=== PATIENT | female | born 1955 | race Caucasian/White ===

== ENCOUNTER 2020-03-01 15:19 | Observation (INO) | payer MEDICARE, MEDICAID, SELFPAY ==
[2020-03-01 15:20] VITALS: PULSE 101; RESP 12; TEMP 36.6; O2SAT 100
--- NOTE | 2020-03-01 15:20 | ECG_ITS ---
Measurements Intervals [place] Rate: 99 P: 26 [place]: 128 QRS: 22 QRSD: 92 T: 2 QT: 341 QTc: 438 Interpretive Statements SINUS RHYTHM NONSPECIFIC ST & T-WAVE ABNORMALITY- DIFFUSE LEADS BASELINE ARTIFACT- I, II, III, AVR, AVL, AVF, V1-V6 BORDERLINE ECG Electronically Signed On 03-01-2020 16:12:59 CDT by Fitz Pollock D.O.
[2020-03-01 15:43] LABS: Basophils Percent Auto 0.3 % (0.2-1.2); Eosinophils Absolute Auto 0.3 K/mm3 (0-0.3); Eosinophils Percent Auto 2.8 % (0-4.4); Hematocrit 34.7 % (37.0-47.0); Hemoglobin 11.7 g/dL (12.0-15.0); Immature Granulocyte Absolute 0.07 K/mm3 (0.00-0.031); Immature Granulocyte Percent A 0.8 % (0-0.5); Lymphocytes Absolute Auto 2.01 K/mm3 (0.9-3.2); Lymphocytes Percent Auto 21.8 % (18.3-44.2); Mean Corpuscular HGB Conc 33.7 g/dl (32-36); Mean Corpuscular Hemoglobin 31.4 pg (26-34); Mean Platelet Volume 12.8 fl (7.4-10.4); Monocytes Absolute Auto 0.7 K/mm3 (0.1-0.6); Monocytes Percent Auto 7.8 % (2.6-8.5); Neutrophils Absolute Auto 6.1 K/mm3 (1.3-6.7); Neutrophils Percent Auto 66.5 % (45.5-73.1); Platelet Count Result 62 k/mm3 (150-375); Red Blood Count 3.73 M/mm3 (4.2-5.4); Red Cell Distribution Width 16.2 % (11.5-14.5); White Blood Count 9.2 K/mm3 (4.5-10.0)
[2020-03-01 15:57] LABS: Alanine Aminotransferase 25 U/L (4-35); Albumin Level 2.4 g/dL (3.5-5.1); Alkaline Phosphatase 196 U/L (38-126); Aspartate Amino Transferase 85 U/L (14-36); Bilirubin,Total 0.6 mg/dL (0.2-1.3); Blood Urea Nitrogen 15 mg/dL (7-17); Calcium 7.8 mg/dL (8.4-10.2); Carbon Dioxide 32 mmol/L (22-30); Chloride 93 mmol/L (98-107); Estimated CRCL calculation 89 ml/min; Estimated Glomerular Filt Rate > 60; Glucose 67 mg/dL (65-105); Potassium 4.5 mmol/L (3.4-5.0); Sodium 128 mmol/L (137-145)
--- NOTE | 2020-03-01 16:28 | ED.GENADULT ---
HPI - General Adult General Chief complaint: Recheck/Abnormal Lab/Rx Stated complaint: ABN LABS Time Seen by Provider: 03/01/20 15:41 Source: family, EMS and RN notes reviewed Mode of arrival: EMS Limitations: clinical condition History of Present Illness HPI narrative: 64-year-old with a history of CVA, quadriplegia a phasic was brought in from [facility] with the complaints of abnormal lab work. As per the family, he thinks hand and feet are swollen. There is no history of fever or chills family seeing her after 3 months. Related Data Home Medications Medication Instructions Recorded Confirmed acetaminophen 960 mg PO TID 03/01/20 albuterol sulfate 2 puff INHALATION QID PRN 03/01/20 03/01/20 apixaban [Eliquis] mg 03/01/20 baclofen mg 03/01/20 brexpiprazole [Rexulti] mg 03/01/20 cephalexin 03/01/20 cholecalciferol (vitamin D3) 03/01/20 cholecalciferol (vitamin D3) 25 mcg PO DAILY 03/01/20 [Vitamin D3] clotrimazole 1 applic TOPICAL DAILY 03/01/20 dantrolene 03/01/20 dextromethorphan-guaifenesin ml 03/01/20 [Robitussin Cough-Chest Mihcael DM] escitalopram oxalate mg 03/01/20 fluticasone propionate [Flonase INTRANASAL 03/01/20 Allergy Relief] gabapentin 03/01/20 guaifenesin 200 mg PO Q4H PRN 03/01/20 hydrocodone-acetaminophen 03/01/20 lactulose 03/01/20 lansoprazole 03/01/20 levothyroxine 03/01/20 loperamide 2 mg PO Q4H PRN 03/01/20 magnesium citrate 150 ml FEEDING TUBE DAILY PRN 03/01/20 magnesium hydroxide [Milk of 03/01/20 Magnesia] meclizine Q6-8H PRN 03/01/20 03/01/20 menthol [Icy Hot (menthol)] TOPICAL 03/01/20 menthol-zinc oxide [Calmoseptine] 1 applic TOPICAL DAILY 03/01/20 metoprolol tartrate 03/01/20 mirtazapine mg 03/01/20 nystatin TOPICAL 03/01/20 ondansetron 4 mg PO Q6H PRN 03/01/20 polyethylene glycol 3350 [Miralax] PRN PRN 03/01/20 suvorexant [Belsomra] mg PO 03/01/20 Allergies Allergy/AdvReac Type Severity Reaction Status Date / Time oxycodone Allergy Unknown Unknown Verified 03/01/20 15:34 Review of Systems Review of Systems: ROS unobtainable: Yes unobtainable due to medical condition PMFSH Family History Family History Mother Diabetes mellitus Hypertension Social History Social History Smoking status: Never smoker Alcohol intake: never Gender identity (if verbalized by the patient): Female Exam Narrative: Exam Narrative: GENERAL: ill appearing, well-nourished, and in no acute distress. Nonverbal HEAD: Normocephalic, atraumatic. EYES: PERRLA and EOMI. ENT: Nares clear, no rhinorrhea or epistaxis. Mucous membranes moist. NECK: Supple. CHEST: Clear to auscultation. No respiratory distress. HEART: Regular rate and rhythm. No murmur heard. Normal peripheral pulses. ABDOMEN: Soft, , normal active bowel sounds. EXTREMITIES: Normal range of motion. No edema. SKIN: Warm, dry, no rash. NEURO: Quadriplegic contractures. PSYCH: Normal mood and affect. Course Course Emergency Course: Inform the about her lab work will admit for hyponatremia, discussed with Ana headley to admit Vital Signs Vital signs: Vital Signs Temperature 36.6 C 03/01/20 15:20 Pulse Rate 101 H 03/01/20 15:20 Respiratory Rate 12 03/01/20 15:20 Pulse Oximetry 100 03/01/20 15:20 Temperature 36.6 C 03/01/20 15:20 Pulse Rate 101 H 03/01/20 15:20 Respiratory Rate 12 03/01/20 15:20 Pulse Oximetry 100 03/01/20 15:20 Medical Decision Making Vital Signs Vital Signs: Vital Signs Temperature 36.6 C 03/01/20 15:20 Pulse Rate 101 H 03/01/20 15:20 Respiratory Rate 12 03/01/20 15:20 Pulse Oximetry 100 03/01/20 15:20 Temperature 36.6 C 03/01/20 15:20 Pulse Rate 101 H 03/01/20 15:20 Respiratory Rate 12 03/01/20 15:20 Pulse Oximetry 100 03/01/20 15:20 Lab Data Result diagrams: 03/01/20 15:
[2020-03-01] MEDS: SODIUM CHLORIDE 0.9% IV 1,000 ML 100 ML IV CONT ×2 (16:29→17:19)
[2020-03-01 16:35] VITALS: BP 110/72; PULSE 117; RESP 12; O2SAT 100
[2020-03-01 17:30] VITALS: BP 100/67; PULSE 110; RESP 12; O2SAT 99
[2020-03-01 18:06] VITALS: BP 102/69; PULSE 111; RESP 12; O2SAT 98
--- NOTE | 2020-03-01 18:14 | PC.NURSE ---
This patient, Tawny Davila, was admitted to Medical Room 344-01. Patient/family oriented to hospital policies and general routines including ID bracelet, bed and alarms, visiting hours, pain management, procedures, bathroom and other care routines, personal items, smoking policy, room service/diet, and visiting hours. Valuables list has been completed. Information on how to activate the Rapid Response Team has been discussed. Patient/Family are encouraged to report perceived risks to care and to ask questions if they do not understand what they are told or what they should do.
[2020-03-01 18:28] VITALS: BMI 23.3
[2020-03-01 18:34] VITALS: BP 108/78; PULSE 114; RESP 14; TEMP 36.6; O2SAT 99
[2020-03-01 19:45] VITALS: BP 104/65; PULSE 110; RESP 12; TEMP 36.3; O2SAT 98
--- NOTE | 2020-03-01 23:19 | PM.IMHP ---
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 The patient was found to have a serum sodium of 128 mEq/dl. prison did not report any other symptoms or signs. The patient herself is aphasic and cannot contribute any history. On review of her previous labs it appears that the patient's baseline serum sodium is around 135 mEq/dl. On review of her home meds, it doesn't appear that she is on any diuretic medications. Review of Systems Review of Systems: ROS unobtainable: Yes unobtainable due to medical condition PMFSH Past Medical History Medical History (Updated 03/02/20 @ 05:32 by Carlos Abdul MD) Quadriplegia Family History Family History Mother Diabetes mellitus Hypertension Social History Social History Smoking status: Never smoker Alcohol intake: never Substance use: never Gender identity (if verbalized by the patient): Female Spiritual care concerns: No Comments Past surgical and family medical histories are unobtainable from the patient. Meds Home Medications and Allergies Home Medications Medication Instructions Recorded Confirmed Type acetaminophen 960 mg FEEDING TUBE TID 03/01/20 03/01/20 History albuterol sulfate 2 puff INHALATION QID PRN 03/01/20 03/01/20 History apixaban [Eliquis] 5 mg FEEDING TUBE BID 03/01/20 03/01/20 History baclofen 10 mg FEEDING TUBE TID 03/01/20 03/01/20 History brexpiprazole [Rexulti] 0.5 mg FEEDING TUBE HS 03/01/20 03/01/20 History cephalexin 250 mg FEEDING TUBE HS 03/01/20 03/01/20 History cholecalciferol (vitamin D3) 125 mcg FEEDING TUBE DAILY 03/01/20 03/01/20 History cholecalciferol (vitamin D3) 25 mcg PO DAILY 03/01/20 03/01/20 History [Vitamin D3] clotrimazole 1 applic TOPICAL DAILY 03/01/20 03/01/20 History dantrolene 100 mg FEEDING TUBE BID 03/01/20 03/01/20 History dextromethorphan-guaifenesin 10 ml FEEDING TUBE Q4-6H 03/01/20 03/01/20 History [Robitussin Cough-Chest Michael DM] escitalopram oxalate 10 mg FEEDING TUBE DAILY 03/01/20 03/01/20 History fluticasone propionate [Flonase 1 spray INTRANASAL DAILY 03/01/20 03/01/20 History Allergy Relief] gabapentin 250 mg FEEDING TUBE QID 03/01/20 03/01/20 History guaifenesin 200 mg PO Q4H PRN 03/01/20 03/01/20 History hydrocodone-acetaminophen 1 tablet FEEDING TUBE BID 03/01/20 03/01/20 History lactulose 10 g FEEDING TUBE DAILY PRN 03/01/20 03/01/20 History lansoprazole 30 mg FEEDING TUBE DAILY 03/01/20 03/01/20 History levothyroxine 112 mcg FEEDING TUBE DAILY 03/01/20 03/01/20 History loperamide 2 mg PO Q4H PRN 03/01/20 03/01/20 History magnesium citrate 150 ml FEEDING TUBE DAILY PRN 03/01/20 03/01/20 History magnesium hydroxide [Milk of 30 ml FEEDING TUBE DAILY PRN 03/01/20 History Magnesia] meclizine 25 mg G-TUBE Q6-8H PRN 03/01/20 03/01/20 History menthol [Icy Hot (menthol)] See Rx Instructions .ROUTE 03/01/20 03/01/20 History .COMPLEX PRN menthol-zinc oxide [Calmoseptine] 1 applic TOPICAL DAILY 03/01/20 03/01/20 History mirtazapine 15 mg FEEDING TUBE HS 03/01/20 03/01/20 History nystatin 1 applic TOPICAL BID 03/01/20 03/01/20 History ondansetron 4 mg PO Q6H PRN 03/01/20 03/01/20 History polyethylene glycol 3350 [Miralax] 17 g FEEDING TUBE PRN PRN 03/01/20 03/01/20 History suvorexant [Belsomra] 15 mg PO HS 03/01/20 03/01/20 History Allergies Allergy/AdvReac Type Severity Reaction Status Date / Time oxycodone Allergy Unknown Unknown Verified 03/01/20 15:34 Vital Signs Vital Signs - 24 hr 03/01/20 15:20 03/01/20 16:35 03/01/20 17:30 Temperature 36.6 C Pulse Rate 101 H 117 H 110 H Respiratory Rate 12 12 12 Blood Pressure 110/72 100/67 Pulse Oximetry 100 100 99 03/01/20 18:06 03/01/20 18
[2020-03-01 23:50] LABS: Blood Urea Nitrogen 14 mg/dL (7-17); Calcium 7.6 mg/dL (8.4-10.2); Carbon Dioxide 29 mmol/L (22-30); Chloride 98 mmol/L (98-107); Estimated CRCL calculation 98 ml/min; Estimated Glomerular Filt Rate > 60; Glucose 76 mg/dL (65-105); Potassium 4.6 mmol/L (3.4-5.0); Sodium 131 mmol/L (137-145)
[2020-03-02] VITALS (11 sets, daily range): BP systolic 96–115; BP diastolic 56–74; PULSE 89–137; RESP 12–18; TEMP 36.1–36.8; O2SAT 96–99; BMI 23.3
--- NOTE | 2020-03-02 | ECHO_ITS ---
Patient Info Name: Tawny Martin [place] Age: 64 years : 1955 Gender: Female Ht: 69 in Wt: 153 lbs BSA: 1.84 m2 HR: 124 bpm BP: 115 / 74 mmHg Technical Quality: Fair Exam Date: 03/02/2020 10:40 AM Exam Location: [facility] Pulmonary Exam Room: 344 Patient Status: Inpatient Admit Date: 03/01/2020 Staff Ordering Physician: Catherine Holder PA-C Delivery Manager: Vidya Forte RDCS Attending Provider: Catherine Holder PA-C Referring Physician: Glory DUGGAN; Exam Type: CA echo dop color flow w con Study Info Indications - sinus tachycardia hx/o cva Complete two-dimensional, color flow and Doppler transthoracic echocardiogram is performed with contrast to opacify the left ventricle and to improve the deliniation of the left ventricle endocardial borders. Summary 1. Left ventricular chamber dimension is normal. 2. Definity contrast administered improved wall motion interpretation. 3. Left ventricular systolic function is normal, estimated at 60-65%. 4. The left ventricular diastolic function is grade I diastolic dysfunction. 5. E/e' 19 is elevated. 6. Left atrial chamber dimension is mildly enlarged. 7. The mitral valve has not well visualized. 8. There is moderate mitral valve regurgitation. 9. There appears to be a circumferential mass 1.1 cm x 1.3 cm attached to posterior mitral valve leaflet in apical 4 chamber but then it appears to be on anterior mitral valve in apical 2 chamber view which could be artifact or vegetation. Consider AMY if clinically indicated. 10. There is trace tricuspid valve regurgitation. 11. Severe pulmonary hypertension, estimated pulmonary arterial systolic pressure is 70 mmHg. Left Ventricle E/e' 19 is elevated. Definity contrast administered improved wall motion interpretation. Left ventricular chamber dimension is normal. Left ventricular systolic function is normal, estimated at 60-65%. The left ventricular diastolic function is grade I diastolic dysfunction. Right Ventricle Right ventricular chamber dimension is normal. Right ventricular systolic function is normal. Left Atria Left atrial chamber dimension is mildly enlarged. Right Atria Right atrial chamber dimension is normal. Aortic Valve The aortic valve is trileaflet. There is no aortic valve stenosis. There is no aortic valve regurgitation. Pulmonic Valve There is no pulmonic regurgitation. Mitral Valve There appears to be a circumferential mass 1.1 cm x 1.3 cm attached to posterior mitral valve leaflet in apical 4 chamber but then it appears to be on anterior mitral valve in apical 2 chamber view which could be artifact or vegetation. Consider AMY if clinically indicated. The mitral valve has not well visualized. There is no mitral valve stenosis. There is moderate mitral valve regurgitation. Tricuspid Valve There is trace tricuspid valve regurgitation. Severe pulmonary hypertension, estimated pulmonary arterial systolic pressure is 70 mmHg. Pericardium/Pleural There is no pericardial effusion. Inferior Vena Cava Normal inferior vena cava with >50% collapse upon inspiration consistent with normal right atrial pressure, 5 mmHg. Aorta The aortic root size at the sinus of Valsalva is normal. Left Ventricular Outflow Tract Name Value Normal LVOT 2D
[2020-03-02] MEDS: SODIUM CHLORIDE 0.9% IV 1,000 ML 100 ML IV CONT ×2 (04:51→16:41)
[2020-03-02 04:54] LABS: Sodium Urine Random 12 meq/L
[2020-03-02] MEDS: LEVOTHYROXINE SODIUM 112 MCG TABLET FEED TUBE (05:54)
--- NOTE | 2020-03-02 06:05 | ECG_ITS ---
Measurements Intervals [place] Rate: 129 P: 24 [place]: 150 QRS: 40 QRSD: 94 T: 17 QT: 302 QTc: 443 Interpretive Statements SINUS TACHYCARDIA BORDERLINE ST-T WAVE ABNORMALITY- ANTEROLAT/INF LEADS BASELINE ARTIFACT- I, II, III, AVR, AVL, AVF, V1-V3 ABNORMAL ECG Electronically Signed On 03-02-2020 7:39:38 CDT by Fitz Pollock D.O.
[2020-03-02] MEDS: SODIUM CHLORIDE 0.9% IV 500 ML IV CONT (06:41)
[2020-03-02 06:47] LABS: Blood Urea Nitrogen 14 mg/dL (7-17); Calcium 7.5 mg/dL (8.4-10.2); Carbon Dioxide 28 mmol/L (22-30); Chloride 100 mmol/L (98-107); Estimated CRCL calculation 98 ml/min; Estimated Glomerular Filt Rate > 60; Glucose 75 mg/dL (65-105); Potassium 4.7 mmol/L (3.4-5.0); Sodium 130 mmol/L (137-145)
[2020-03-02 08:58] LABS: Thyroid Stimulating Hormone Reflex < 0.015 uIU/mL (0.465-4.68)
--- NOTE | 2020-03-02 09:06 | PM.IMPN ---
Progress Note: A&P Assessment and Plan (1) Acute hyponatremia: Code(s): E87.1 - Hypo-osmolality and hyponatremia Status: Acute Assessment and Plan: Patient was noted to have hyponatremia on routine labs at [facility], possibly secondary to mild dehydration as staff at [facility] noted poor oral intake recently. At presentation, sodium was 128. Sodium has remained stable at 130 today. Urine sodium is 12. Urine osmolality is pending. Continue gentle IV fluids Repeat sodium this afternoon Continue to monitor BMP closely Continue 1000 ml dietary fluid restriction for now (2) Quadriplegia: Code(s): G82.50 - Quadriplegia, unspecified Status: Chronic Assessment and Plan: Secondary to brainstem CVA. Per discussion with nursing staff at [facility], she is mostly nonverbal and is at baseline. Continue routine care with frequent position changing All medicines per G tube (3) Sinus tachycardia: Code(s): R00.0 - Tachycardia, unspecified Status: Acute Assessment and Plan: Her HR has been elevated in the 120s this morning with increase up to 150. EKG demonstrates sinus tachycardia. She was previously on metoprolol but was discontinued approximately 3 days ago due to soft blood pressures. BP has been stable here. I suspect her tachycardia is a result of cessation of beta olive therapy Resume metoprolol 12.5 mg BID. Check echo for wall motion abnormalities Check troponin and TSH Continue to monitor HR closely on telemetry (4) Dietary counseling: Code(s): Z71.3 - Dietary counseling and surveillance Status: Acute Assessment and Plan: Patient has recently had poor oral intake on her mechanical soft diet and was recently re-started on supplemental tube feedings over the past 2 weeks due to inability to achieve adequate oral intake. Dynam[employer] has been consulted and recommendations are appreciated Continue Jevity 1.2 100ml/hr x4 hours daily Continue minced and moist level 5 diet Subjective Date/time seen: 03/02/20 09:06 Interval history: Date of service: 03/02/2020 Ms. Davila is nonverbal. She does not follow any commands or track me with her eyes. She appears to be resting comfortably. She grunts occasionally and sporadically. She does not respond to any questions. I did speak with her nurse at [facility] who tells me this is essentially her baseline, though she seems to have been more lethargic lately with poor oral intake. Review of Systems Review of Systems: ROS unobtainable: Yes unobtainable due to mental status Exam Narrative: Exam Narrative: Ms. Davila is examined alone today. She is a well nourished female who is lying supine in bed. She appears comfortable and is in NARD. Neuro: She is asleep during the visit, she does not track me with her eyes, she does not respond to questions or follow commands HEENMT: normocephalic, atraumatic, EOMI, sclerae anicteric, moist oral mucosa Neck: supple, no lymphadenopathy Respiratory: clear to auscultation anteriorly, normal respiratory effort without accessory muscle use Cardio: tachycardic, regular rhythm, normal S1 and S2 Abdomen: normal to inspection, nondistended, G tube in place, normoactive bowel sounds, soft, nontender to palpation : wearing depends Extremities: upper extremities contracted, BLE without edema, erythema, or pain to palpation, dorsal pedis pulses palpable bilaterally Skin: no rashes or lesions, warm and dry Psych: poor insight Objective Data Vital Signs Vital Signs: Vital Signs - 24 hr 03/01/20 15:20 03/01/20 16:35 03/01/20 17:30 Temperature 97.8 F Pulse Rate 101 H 117 H 110 H Respiratory Rate 12 12 12 Blood Pressure 110/72 100/67 Pulse Oximetry 100 100 99 03/01/20 18:06 03/01/20 18:34 03/01/20 19:45 Temperature 97.8 F 97.3 F L Pulse Rate 111 H 114 H 110 H Respiratory Rate 12 14 12 Blood Pressure 102/69 108/78 104/65 Pulse Oximetry
[2020-03-02 10:37] LABS: NT Pro B Type Natriuretic Pept 2450 PG/ML (5-100); Troponin I 0.048 ng/mL (0.000-0.034)
[2020-03-02] MEDS: METOPROLOL TARTRATE 12.5 MG TABLET PO ×2 (10:43→22:51)
[2020-03-02] MEDS: guaiFENesin/DEXTROMETHORPHAN 10 ML UDC FEED TUBE ×4 (10:53→22:52)
[2020-03-02] MEDS: BACLOFEN 10 MG TABLET FEED TUBE ×3 (10:54→18:48)
[2020-03-02] MEDS: APIXABAN 5 MG TABLET FEED TUBE ×2 (10:54→18:48)
[2020-03-02] MEDS: ACETAMINOPHEN ELIXIR 325 MG/10.15 ML UDC 975 MG FEED TUBE (10:54)
[2020-03-02] MEDS: CHOLECALCIFEROL 1,000 UNIT TABLET 5000 UNITS FEED TUBE (10:54)
[2020-03-02] MEDS: DANTROLENE SODIUM 25 MG CAPSULE 100 MG FEED TUBE ×2 (10:55→18:48)
[2020-03-02] MEDS: ZINC OXIDE 20% OINT 30 GM TUBE 1 APPLIC TOPICAL (10:56)
[2020-03-02] MEDS: TOLNAFTATE 1% POWDER 45 GM BTL 1 APPLIC TOPICAL ×2 (10:56→23:03)
[2020-03-02] MEDS: FLUTICASONE PROPIONATE 0.05% NA SPR 16 GM BTL (*BKC) 1 SPRAY NASAL (10:56)
[2020-03-02] MEDS: LANSOPRAZOLE ORAL SUSP 30 MG/10 ML ORAL.SUSP FEED TUBE (10:57)
--- NOTE | 2020-03-02 11:00 | PCDIET ---
Nutrition Follow-Up Complete: Inadequate oral intake R/T reduced appetite as evidence by need for supplemental EN and NH report of reduced intake over the last week Total intake will meet estimated nutrition needs Additional Notes: Agree with EN of Jevity 1.2 at 400ml/day to provide 480kcals and 26g protein along with diet. This meets 31% of needs. It pt unable to eat at least 50% of meals, TID, recommend EN change. If EN sole nutrition, recommend Jevity 1.2 at 60ml/hr over 22 hrs to provide 1584kcals daily. Will f/u to determine PO intake, diet, and additional needs. PO intake, diet, EN tolerance, labs, wt every T/F
[2020-03-02] MEDS: PERFLUTREN LIPID MICROSPHERES 1.5 ML VIAL DILUTED TO 10 ML TOTAL VOLUME IV PUSH (11:20)
[2020-03-02 13:05] LABS: Sodium 130 mmol/L (137-145)
[2020-03-02 13:27] LABS: Free T4 Free Thyroxine Reflex 3.73 ng/dL (0.78-2.19)
[2020-03-02 17:10] LABS: Troponin I 0.059 ng/mL (0.000-0.034)
[2020-03-02] MEDS: MIRTAZAPINE 15 MG TABLET FEED TUBE (22:52)
[2020-03-02] MEDS: CEPHALEXIN 250 MG CAPSULE FEED TUBE (22:52)
[2020-03-03] VITALS (12 sets, daily range): BP systolic 98–117; BP diastolic 69–78; PULSE 65–114; RESP 10–16; TEMP 36.3–36.6; O2SAT 93–98
[2020-03-03 02:59] LABS: Hemoglobin 9.9 g/dL (12.0-15.0); Mean Corpuscular HGB Conc 34.1 g/dl (32-36); Mean Corpuscular Hemoglobin 31.9 pg (26-34); Mean Corpuscular Volume 93.5 fl (80-100); Mean Platelet Volume 12.5 fl (7.4-10.4); Platelet Count Result 79 k/mm3 (150-375); Red Cell Distribution Width 17.3 % (11.5-14.5)
[2020-03-03] MEDS: SODIUM CHLORIDE 0.9% IV 1,000 ML 100 ML IV CONT (02:59)
[2020-03-03 03:10] LABS: Blood Urea Nitrogen 15 mg/dL (7-17); Calcium 7.3 mg/dL (8.4-10.2); Carbon Dioxide 26 mmol/L (22-30); Chloride 105 mmol/L (98-107); Estimated CRCL calculation 98 ml/min; Estimated Glomerular Filt Rate > 60; Glucose 90 mg/dL (65-105); Potassium 4.7 mmol/L (3.4-5.0); Sodium 133 mmol/L (137-145)
[2020-03-03] MEDS: BACLOFEN 10 MG TABLET FEED TUBE ×3 (08:50→17:18)
[2020-03-03] MEDS: DANTROLENE SODIUM 25 MG CAPSULE 100 MG FEED TUBE ×2 (08:51→17:18)
[2020-03-03] MEDS: CHOLECALCIFEROL 1,000 UNIT TABLET 5000 UNITS FEED TUBE (08:51)
[2020-03-03] MEDS: guaiFENesin 200 MG/10 ML UDC PO (08:52)
[2020-03-03] MEDS: FLUTICASONE PROPIONATE 0.05% NA SPR 16 GM BTL (*BKC) 1 SPRAY NASAL (08:52)
[2020-03-03] MEDS: guaiFENesin/DEXTROMETHORPHAN 10 ML UDC FEED TUBE ×4 (08:53→21:27)
[2020-03-03] MEDS: METOPROLOL TARTRATE 12.5 MG TABLET PO ×2 (08:53→21:25)
[2020-03-03] MEDS: ZINC OXIDE 20% OINT 30 GM TUBE 1 APPLIC TOPICAL (08:54)
[2020-03-03] MEDS: TOLNAFTATE 1% POWDER 45 GM BTL 1 APPLIC TOPICAL ×2 (08:54→21:27)
[2020-03-03] MEDS: LANSOPRAZOLE ORAL SUSP 30 MG/10 ML ORAL.SUSP FEED TUBE (08:55)
--- NOTE | 2020-03-03 12:14 | PCNFU ---
Nutrition Follow-Up Complete: Inadequate oral intake R/T reduced appetite as evidence by need for supplemental EN and NH report of reduced intake over the last week Goal: Total intake will meet estimated nutrition needs Progressing towards the goal. We will continue current goal. Pt current nutrition is Minced and Moist,Level 5 with Tube feedings of Jevity 1.2 100 ml x 4 hours. Nutrition recommendation:Agree Last recorded weight is 69.5 kg. Bowel Motility:+BM reported 03/03 Labs Reviewed: Alb 2.6,BUN 34,Glu 127,Hct 25.3, Hgb 7.2 Meds Noted:Vit D, Lopressor Additional Notes: Nutrition follow up today. Patient starting on PO diet of Minced and Moist, Level 5 diet with bolus tube feedings of Jevity 1.2 100 ml x 4 hours. Tube feedings are providing 480 kcals and 26 gms protein. MD orders for Ensure Compact TID providing an additional 220 kcals and 9 gms protein. Monitoring: PO intake, diet, EN tolerance, labs, wt every T/F.
--- NOTE | 2020-03-03 12:49 | PM.CNCAR ---
Assessment and Plan Additional Plan very unfortunate 64-year-old white female who has echocardiographic appearance of a mitral valve vegetation which I would suspect represents a previously infected valve. When this might of happened is completely unknown. I would simply suspect clinically it may have been related to her long CVA hospitalization years ago at which time she had a chronic indwelling central lines according to the . It at this time certainly it could have occurred where she had a subclinical episode of endocarditis and the mitral valve vegetations that we are seeing are probably old healed vegetations and she has modest mitral valve regurgitation as a consequence of this. I suppose it is reasonable to obtain blood cultures to verify that she is not actively infected at this time. If those are negative I do not believe we have anything else to be concerned about regarding her mitral valve at this time. It is clear that given her overall condition she is not a candidate for aggressive surgical repair or treatment of her mitral valve regurgitation at this time. I had a lengthy discussion with the about this and he is in agreement with this statement as well. Melvin Watson MD [facility] History of Present Illness History of Present Illness Consult date/time: 03/03/20 12:49 Reason For Visit: Hyponatremia Narrative: The this is a very unfortunate 64-year-old lady that I am seeing at the request of the hospitalist because of abnormal findings on echocardiogram that was read by a different malt house loader. The patient was hospitalized here couple of days ago according to the records because of hyponatremia. I do not see any clear-cut explanation as to the reason the justified hospitalization for this. She was felt to be somewhat dehydrated and has been receiving IV fluid rehydration. Patient is incapable of providing any history to me because she unfortunately has suffered a brainstem infarction about 4 years ago she is nonverbal and a quadriplegic and is a penitentiary resident I believe at [facility]. Fortunately her is with her at the bedside and is providing all of the history. It was his impression that she was being sent to the hospital for evaluation of her liver or gallbladder which is not mentioned all in the notes that are available in the chart for me to review. For reasons that are not understood an echocardiogram was done yesterday which was read by Dr. Pollock as showing an abnormality on her mitral valve consistent with a vegetation and that triggered asking me to see her today in consultation. There is no history of recent fever according to the she has never had any trouble with her heart in the past As far as he is aware. The patient suffered a devastating brain stem CVA in 2016 he describes a lengthy hospitalization which of course included the presence of IV lines for hydration and nutrition for quite a long time before feeding tubes were eventually placed. He does remember her having any concerns regarding infection or abnormal, positive blood cultures. Because of these findings a blood cultures were drawn in this hospital as well in the are of course pending at this time. Patient's electrocardiogram shows a sinus tachycardia otherwise essentially within normal limits. The echocardiogram I did review personally since I was asked to see her in consultation. She does appear to have a mitral valve vegetation although it is not possible to say that this is acute. She has a fairly sizable 1 x 1.3 cm vegetation associated with the mitral valve also resulting in mild mitral valve regurgitation. The remainder of the cardiac valves look unremarkable her left ventricular function is normal. In addition to all of this stated above the patient is DNR status. she is responsive and alert but nonverbal and obviously in capable of participating in this conversation Review of Systems Review of Systems: AMAIRANI
[2020-03-03 13:49] LABS: SARS-CoV-2 RNA PCR Negative
[2020-03-03 14:15] LABS: Iron 79 ug/dL (37-170)
[2020-03-03 14:20] LABS: Percent Iron Saturation 68 % (20-50)
[2020-03-03 14:27] LABS: Hematocrit 27.7 % (37.0-47.0); Hemoglobin 9.3 g/dL (12.0-15.0)
--- NOTE | 2020-03-03 15:05 | WPDGICN ---
Assessment and Plan Assessment and plan (1) Rectal bleeding: Code(s): K62.5 - Hemorrhage of anus and rectum Status: Acute Assessment and Plan: is quite worried about it will assess with colonoscopy, could be diverticular source, perianal but also she has been on blood thinners and has thrombocytopenia will give her prep through g-tube (2) Acute on chronic blood loss anemia: Code(s): D62 - Acute posthemorrhagic anemia Status: Acute Assessment and Plan: monitor hb (3) Quadriplegia: Code(s): G82.50 - Quadriplegia, unspecified Status: Chronic Assessment and Plan: from massive stroke (4) Thrombocytopenia: Code(s): D69.6 - Thrombocytopenia, unspecified Status: Chronic Assessment and Plan: chronic (5) Acute hyponatremia: Code(s): E87.1 - Hypo-osmolality and hyponatremia Status: Acute Assessment and Plan: apparently main reason of admission (6) G tube feedings: Code(s): Z93.1 - Gastrostomy status Status: Acute Assessment and Plan: hold feeding for now GI Consult Note Consult date/time: 03/03/20 15:05 Reason for consult: rectal bleeding HPI: Tawny Martin [place] is a 64 year old female with a complicated medical history including 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 The patient was found to have a serum sodium of 128 mEq/dl. long term did not report any other symptoms or signs. There was no report of bleeding but now the noted since last night new onset of rectal bleeding, he says that never had it. She had a colonoscopy but he could not tell me when it was done. History is obtained from records and , she can not talk. Hb on admission was 11 and repeat 9.3, also platelets 79. Last dose eliquis was yesterday. would like to evaluate source of bleeding and he is concerned about it. Review of Systems Review of Systems: ROS unobtainable: Yes unobtainable due to mental status PMFSH Past Medical History Medical History (Updated 03/03/20 @ 15:21 by Ang Aden MD) Acute on chronic blood loss anemia G tube feedings Quadriplegia Rectal bleeding Family History Family History Mother Diabetes mellitus Hypertension Social History Social History Smoking status: Never smoker Alcohol intake: never Substance use: never Gender identity (if verbalized by the patient): Female Spiritual care concerns: No Meds Home Medications and Allergies Home Medications Medication Instructions Recorded Confirmed Type acetaminophen 960 mg FEEDING TUBE TID 03/01/20 03/01/20 History albuterol sulfate 2 puff INHALATION QID PRN 03/01/20 03/01/20 History apixaban [Eliquis] 5 mg FEEDING TUBE BID 03/01/20 03/01/20 History baclofen 10 mg FEEDING TUBE TID 03/01/20 03/01/20 History brexpiprazole [Rexulti] 0.5 mg FEEDING TUBE HS 03/01/20 03/01/20 History cephalexin 250 mg FEEDING TUBE HS 03/01/20 03/01/20 History cholecalciferol (vitamin D3) 125 mcg FEEDING TUBE DAILY 03/01/20 03/01/20 History cholecalciferol (vitamin D3) 25 mcg PO DAILY 03/01/20 03/01/20 History [Vitamin D3] clotrimazole 1 applic TOPICAL DAILY 03/01/20 03/01/20 History dantrolene 100 mg FEEDING TUBE BID 03/01/20 03/01/20 History dextromethorphan-guaifenesin 10 ml FEEDING TUBE Q4-6H 03/01/20 03/01/20 History [Robitussin Cough-Chest Michael DM] escitalopram oxalate 10 mg FEEDING TUBE DAILY 03/01/20 03/01/20 History fluticasone
--- NOTE | 2020-03-03 17:12 | PM.IMPN ---
Progress Note: A&P Assessment and Plan (1) Quadriplegia: Code(s): G82.50 - Quadriplegia, unspecified Status: Chronic Assessment and Plan: Secondary to brainstem CVA. Per discussion with nursing staff at [facility], she is mostly nonverbal and is at baseline. Continue routine care with frequent position changing All medicines per G tube (2) Acute hyponatremia: Code(s): E87.1 - Hypo-osmolality and hyponatremia Status: Acute Assessment and Plan: Patient was noted to have hyponatremia on routine labs at [facility], possibly secondary to mild dehydration as staff at [facility] noted poor oral intake recently. At presentation, sodium was 128. Sodium has stabilized and is 133 today. Urine sodium is 12. Urine osmolality is pending. Discontinue IV fluids Continue to monitor BMP (3) Sinus tachycardia: Code(s): R00.0 - Tachycardia, unspecified Status: Acute Assessment and Plan: Her HR was elevated in the 120s this morning with increase up to 150 on 03/02/20. EKG showed sinus tachycardia. She was previously on metoprolol but was discontinued approximately 3 days ago due to soft blood pressures. BP has been stable here. I suspect her tachycardia was a result of cessation of beta olive therapy. HR better controlled today. Conrtinue metoprolol 12.5 mg BID. Troponins very mildly elevated with flat trend. Continue to monitor HR closely on telemetry (4) Thrombocytopenia: Code(s): D69.6 - Thrombocytopenia, unspecified Status: Chronic Assessment and Plan: Unclear etiology at this time. Seems to be chronic in review of prior visits. Platelets have increased compared to presentation. Continue to hold Eliquis Monitor platelets (5) Rectal bleeding: Code(s): K62.5 - Hemorrhage of anus and rectum Status: Acute Assessment and Plan: Patient had an episode of dark red stool yesterday evening. H&H dropped approximately 2 points, but has remained stable. While this may have been dilutional given IV fluids, cannot rule out that this is secondary to rectal bleed. I discussed these findings with her who adamantly requested consultation by silver chaser. Gastroenterology has been consulted and recommendations are appreciated Plan for colonoscopy tomorrow Continue to hold apixaban at this time Continue to monitor H&H (6) Normocytic anemia: Code(s): D64.9 - Anemia, unspecified Status: Chronic Assessment and Plan: Per review of prior visits, this is chronic. Hemoglobin dropped approximately 2 points following episode of rectal bleeding. May have been dilutional. H&H has remained stable. Continue to monitor H&H closely Transfuse as needed with hemoglobin threshold <7.0 (7) Vegetation of heart valve: Code(s): I33.0 - Acute and subacute infective endocarditis Status: Acute Assessment and Plan: Echo performed on 03/02 given sinus tachycardia with history of CVA which incidentally revealed a 1.1 cm x 1.3 cm circumferential mass attached to posterior mitral valve leaflet and subsequent mitral valve regurgitation. She has no signs or symptoms to suggest active infection. Cardiology has been consulted and their recommendations are appreciated. Blood cultures are pending. If no growth on blood cultures, will not pursue any further workup at this time. (8) Dietary counseling: Code(s): Z71.3 - Dietary counseling and surveillance Status: Acute Assessment and Plan: Patient has recently had poor oral intake on her mechanical soft diet and was recently re-started on supplemental tube feedings over the past 2 weeks due to inability to achieve adequate oral intake. Financial Cost Analyst has been consulted and recommendations are appreciated Continue Jevity 1.2 100ml/hr x4 hours daily Continue minced and moist level 5 diet Subjective Date/time seen: 03/03/20 1
[2020-03-03] MEDS: PEG (High)/E-LYTE SOLN 4,000 ML BTL 4000 ML PO (17:18)
[2020-03-03] MEDS: BISACODYL 5 MG TABLET EC 20 MG PO (17:18)
[2020-03-03] MEDS: MIRTAZAPINE 15 MG TABLET FEED TUBE (21:25)
[2020-03-03] MEDS: CEPHALEXIN 250 MG CAPSULE FEED TUBE (21:25)
[2020-03-04] VITALS (15 sets, daily range): BP systolic 105–128; BP diastolic 59–84; PULSE 80–110; RESP 12–18; TEMP 35.7–36.9; O2SAT 93–100
[2020-03-04 06:28] LABS: Hematocrit 28.2 % (37.0-47.0); Hemoglobin 9.6 g/dL (12.0-15.0); Mean Corpuscular Hemoglobin 31.7 pg (26-34); Mean Corpuscular Volume 93.1 fl (80-100); Mean Platelet Volume 12.4 fl (7.4-10.4); Platelet Count Result 88 k/mm3 (150-375); Red Blood Count 3.03 M/mm3 (4.2-5.4); Red Cell Distribution Width 17.2 % (11.5-14.5); White Blood Count 8.9 K/mm3 (4.5-10.0)
[2020-03-04] MEDS: LEVOTHYROXINE SODIUM 112 MCG TABLET FEED TUBE (06:35)
[2020-03-04 06:42] LABS: Blood Urea Nitrogen 15 mg/dL (7-17); Calcium 7.6 mg/dL (8.4-10.2); Carbon Dioxide 28 mmol/L (22-30); Chloride 103 mmol/L (98-107); Estimated CRCL calculation 119 ml/min; Estimated Glomerular Filt Rate > 60; Glucose 78 mg/dL (65-105); Potassium 4.1 mmol/L (3.4-5.0); Sodium 134 mmol/L (137-145)
--- NOTE | 2020-03-04 07:07 | PC.NURSE ---
[facility] HERE TO TRANSFER PT TO GI LAB. PT STOOL VERIFIED CLEAR. CHART AND CONSENT SENT WITH PATIENT.
[2020-03-04] MEDS: LACTATED RINGERS 1,000 ML 150 ML IV CONT (07:17)
--- NOTE | 2020-03-04 07:18 | WPDANESEPP ---
Anes - Eval Pre Procedure Procedure: Operation Date: 03/04/20 07:30 Proposed Procedures p Colonoscopy - Ang Aden MD Date/Time: 03/04/20 07:18 Surgeon: Isaias Preop Diagnosis: Rectal Bleeding Pre Op Diagnosis: Hyponatremia Patient Data Age: 64 Gender: F Height: 5 ft 8 in Weight: 69.5 kg Last Vital Signs Temp 98.4 F 03/04/20 06:26 Pulse 99 03/04/20 06:26 Resp 12 03/04/20 06:26 BP 127/84 03/04/20 06:26 Pulse Ox 98 03/04/20 06:26 Allergies Allergy/AdvReac Type Severity Reaction Status Date / Time oxycodone Allergy Unknown Unknown Verified 03/01/20 15:34 Home Medications Medication Instructions Recorded Confirmed Type acetaminophen 960 mg FEEDING TUBE TID 03/01/20 03/01/20 History albuterol sulfate 2 puff INHALATION QID PRN 03/01/20 03/01/20 History apixaban [Eliquis] 5 mg FEEDING TUBE BID 03/01/20 03/01/20 History baclofen 10 mg FEEDING TUBE TID 03/01/20 03/01/20 History brexpiprazole [Rexulti] 0.5 mg FEEDING TUBE HS 03/01/20 03/01/20 History cephalexin 250 mg FEEDING TUBE HS 03/01/20 03/01/20 History cholecalciferol (vitamin D3) 125 mcg FEEDING TUBE DAILY 03/01/20 03/01/20 History cholecalciferol (vitamin D3) 25 mcg PO DAILY 03/01/20 03/01/20 History [Vitamin D3] clotrimazole 1 applic TOPICAL DAILY 03/01/20 03/01/20 History dantrolene 100 mg FEEDING TUBE BID 03/01/20 03/01/20 History dextromethorphan-guaifenesin 10 ml FEEDING TUBE Q4-6H 03/01/20 03/01/20 History [Robitussin Cough-Chest Michael DM] escitalopram oxalate 10 mg FEEDING TUBE DAILY 03/01/20 03/01/20 History fluticasone propionate [Flonase 1 spray INTRANASAL DAILY 03/01/20 03/01/20 History Allergy Relief] gabapentin 250 mg FEEDING TUBE QID 03/01/20 03/01/20 History guaifenesin 200 mg PO Q4H PRN 03/01/20 03/01/20 History hydrocodone-acetaminophen 1 tablet FEEDING TUBE BID 03/01/20 03/01/20 History lactulose 10 g FEEDING TUBE DAILY PRN 03/01/20 03/01/20 History lansoprazole 30 mg FEEDING TUBE DAILY 03/01/20 03/01/20 History levothyroxine 112 mcg FEEDING TUBE DAILY 03/01/20 03/01/20 History loperamide 2 mg PO Q4H PRN 03/01/20 03/01/20 History magnesium citrate 150 ml FEEDING TUBE DAILY PRN 03/01/20 03/01/20 History magnesium hydroxide [Milk of 30 ml FEEDING TUBE DAILY PRN 03/01/20 03/02/20 History Magnesia] meclizine 25 mg G-TUBE Q6-8H PRN 03/01/20 03/01/20 History menthol [Icy Hot (menthol)] See Rx Instructions .ROUTE 03/01/20 03/01/20 History .COMPLEX PRN menthol-zinc oxide [Calmoseptine] 1 applic TOPICAL DAILY 03/01/20 03/01/20 History mirtazapine 15 mg FEEDING TUBE HS 03/01/20 03/01/20 History nystatin 1 applic TOPICAL BID 03/01/20 03/01/20 History ondansetron 4 mg PO Q6H PRN 03/01/20 03/01/20 History polyethylene glycol 3350 [Miralax] 17 g FEEDING TUBE PRN PRN 03/01/20 03/01/20 History suvorexant [Belsomra] 15 mg PO HS 03/01/20 03/01/20 History Laboratory Tests 03/02/20 03/03/20 03/03/20 22:24 13:40 14:17 WBC RBC Hgb 9.3 g/dL L g/dL (12.0-15.0) Hct 27.7 % L % (37.0-47.0) MCV MCH MCHC RDW Plt Count MPV Sodium Potassium Chloride Carbon Dioxide BUN Creatinine Estim Creat Clear Calc Estimated GFR Glucose Calcium Iron 79 ug/dL ug/dL (37-170) TIBC 116 ug/dL L ug/dL (261-462) % Saturation 68 % H % (20-50) Ferritin 829.00 ng/mL H ng/mL (11.1-264) SARS-CoV-2 RNA (RT-PCR) Negative 03/04/20 03/04/20 06:00 06:07 WBC 8.9 K/mm3 K/mm3 (4.5-10.0) RBC 3.03 M/mm3 L M/mm3 (4.2-5.4) Hgb 9.6 g/dL L g/dL (12.0-15.0) Hct 28.2 % L % (37.0-47.0) MCV 93.1 fl fl (80-100) MCH 31.7 pg pg (26-34) MCHC 34.0 g/dl g/dl (32-36) RDW 17.2 % H %
--- NOTE | 2020-03-04 08:10 | PC.NURSE ---
Returned from GI Lab per edin.
[2020-03-04] MEDS: BACLOFEN 10 MG TABLET FEED TUBE ×3 (09:57→16:42)
[2020-03-04] MEDS: APIXABAN 5 MG TABLET FEED TUBE (09:57)
[2020-03-04] MEDS: DANTROLENE SODIUM 25 MG CAPSULE 100 MG FEED TUBE ×2 (09:58→16:42)
[2020-03-04] MEDS: CHOLECALCIFEROL 1,000 UNIT TABLET 5000 UNITS FEED TUBE (09:58)
[2020-03-04] MEDS: METOPROLOL TARTRATE 12.5 MG TABLET PO (09:59)
[2020-03-04] MEDS: FLUTICASONE PROPIONATE 0.05% NA SPR 16 GM BTL (*BKC) 1 SPRAY NASAL (10:00)
[2020-03-04] MEDS: TOLNAFTATE 1% POWDER 45 GM BTL 1 APPLIC TOPICAL (10:00)
[2020-03-04] MEDS: ZINC OXIDE 20% OINT 30 GM TUBE 1 APPLIC TOPICAL (10:01)
--- NOTE | 2020-03-04 10:12 | PC.NURSE ---
[id number] called pharmacy to request 0900 dose of prevacid and tylenol elixir be sent to floor for administration.
--- NOTE | 2020-03-04 10:22 | PM.PNCARD ---
Progress Note: A&P Additional Plan Abnormal appearance of mitral valve on echo this is most consistent with a previously infected valve. One would presume that during a previous hospitalization possibly when she had her CVA a number of years ago and had a lot of venous central lines she might have had a subclinical episode of endocarditis. Blood cultures are negative there is no evidence of active infection of this valve and the valve is regurgitant but this is not severe appears to be mild to moderate at most. No further cardiac evaluation of this appears to be necessary at this time particularly in this debilitated lady who has chosen DNR status. Cardiology will sign off at this time please call me if my services are needed Melvin Watson MD [facility] Subjective Date/time seen: Date of service: 03/04/20 10:22 Interval history: Follow-up visit in this 64-year-old patient with abnormal findings regarding her mitral valve on echocardiogram. Patient had colonoscopy this morning with normal results. She is comfortable and denies any complaints. Patient is obviously bed ridden chronically because of brainstem CVA and quadriplegia. Exam Const: General: comfortable and no acute distress HENMT: Mouth: Yes moist mucous membranes Eyes: Sclera: sclerae normal Neck: Neck: supple and no JVD Resp: Effort & Inspection: normal respiratory effort Auscultation: clear to auscultation bilaterally Cardio: Rate: regular rate Rhythm: regular rhythm Other: Soft apical murmur of MR is audible GI: Auscultation: normal bowel sounds Skin: General skin exam: normal color Neuro: Other: Nonverbal quadriplegic lady Objective Data Vital Signs Vital Signs: Vital Signs - 24 hr 03/03/20 12:00 03/03/20 14:00 03/03/20 16:00 Temperature 36.5 C Pulse Rate 88 67 99 Respiratory Rate 16 Blood Pressure 117/78 Pulse Oximetry 95 03/03/20 20:00 03/03/20 21:25 03/03/20 21:35 Temperature 36.6 C Pulse Rate 65 104 H 102 H Respiratory Rate 10 L Blood Pressure 108/77 Pulse Oximetry 97 03/04/20 00:00 03/04/20 04:00 03/04/20 06:26 Temperature 36.9 C Pulse Rate 81 107 H 99 Respiratory Rate 12 Blood Pressure 127/84 Pulse Oximetry 98 03/04/20 07:19 03/04/20 07:41 03/04/20 07:51 Temperature 36.4 C Pulse Rate 100 91 99 Respiratory Rate 16 14 16 Blood Pressure 128/83 108/67 122/74 Pulse Oximetry 93 99 99 03/04/20 08:01 03/04/20 08:10 03/04/20 08:30 Temperature 35.7 C L 36.0 C L Pulse Rate 97 97 96 Respiratory Rate 15 16 16 Blood Pressure 127/73 111/75 113/68 Pulse Oximetry 98 96 97 03/04/20 08:56 03/04/20 09:51 03/04/20 09:59 Temperature 36.2 C L 35.9 C L Pulse Rate 96 98 110 H Respiratory Rate 16 18 Blood Pressure 119/71 116/70 Pulse Oximetry 98 100 Intake/Output Intake/Output: Intake & Output 03/01/20 03/02/20 03/03/20 03/04/20 23:59 23:59 23:59 23:59 Intake Total 1000 2730 2088 50 Output Total 100 Balance 1000 2630 2088 50 Meds/Results Medications: Active Medications Generic Name Dose Route Start Last Admin Trade Name Freq PRN Reason Stop Dose Admin Acetaminophen 975 mg 03/02/20 09:00 03/02/20 18:38 Tylenol Elixir FEED TUBE Not Given TID RINA Hydrocodone Bitart/Acetaminophen 1 tab 03/02/20 09:00 03/04/20 10:06 [place] 5-325 Mg FEED TUBE 1 tab BID RINA Administration Albuterol 2 puff 03/02/20 00:04 Proventil Hfa INHALATION QID PRN Dyspnea Apixaban 5 mg 03/02/20 09:00 03/04/20 09:57 Eliquis FEED TUBE 5 mg BID RINA Administration Baclofen 10 mg 03/02/20 09:00 03/04/20 09:57 Lioresal Po FEED TUBE 10 mg TID RINA Administration Dantrolene Sodium 100 mg 03/02/20 09:00 03/04/20 09:58 Dantrolene Sodium FEED TUBE 04/01/20 09:01 100 mg BID RINA Administration Fluticasone Propionate 1 spray 03/02/20 09:00 03/04/20 10:00 Flonase 0.05% Nasal [place] NASAL 1 spray DAILY RINA Administration Guaif
[2020-03-04] MEDS: LANSOPRAZOLE ORAL SUSP 30 MG/10 ML ORAL.SUSP FEED TUBE (12:07)
--- NOTE | 2020-03-04 13:44 | PM.DS ---
DS: Admitting Diagnosis Admitting Diagnosis Admitting Diagnosis: Hypo-osmolality and hyponatremia DS: Discharge Diagnosis Discharge Diagnosis (1) Quadriplegia: Code(s): G82.50 - Quadriplegia, unspecified Status: Chronic Assessment and Plan: Secondary to brainstem CVA. Per discussion with nursing staff at [facility], she is mostly nonverbal and was at baseline. All medicines were given per G tube. (2) Acute hyponatremia: Code(s): E87.1 - Hypo-osmolality and hyponatremia Status: Acute Assessment and Plan: Patient was noted to have hyponatremia on routine labs at [facility], possibly secondary to mild dehydration as staff at [facility] noted poor oral intake recently. At presentation, sodium was 128 and urine sodium was 12. She was rehydrated with gentle IV fluids. Levels increased at a steady rate and was 134 at discharge. (3) Sinus tachycardia: Code(s): R00.0 - Tachycardia, unspecified Status: Acute Assessment and Plan: Her HR was elevated in the 120s with increase up to 150 on 03/02/20. EKG showed sinus tachycardia. She was previously on metoprolol but was discontinued approximately 1 week prior to admission due to soft blood pressures. BP remained stable here. I suspect her tachycardia was a result of cessation of beta olive therapy. Troponins were very mildly elevated with flat trend. Echo was performed to evaluate for wall motion abnormalities which showed normal EF 60-65% and grade I diastolic dysfunction. HR improved with addition of metoprolol 12.5 mg BID which she will continue as an outpatient with close monitoring of BP and review by [place] physician. (4) Thrombocytopenia: Code(s): D69.6 - Thrombocytopenia, unspecified Status: Chronic Assessment and Plan: Unclear etiology and seems to be chronic in review of prior visits. Platelets steadily increased. (5) Rectal bleeding: Code(s): K62.5 - Hemorrhage of anus and rectum Status: Acute Assessment and Plan: Patient had an episode of dark red stool 03/02/20. H&H dropped approximately 2 points, but remained stable. While this may have been dilutional given IV fluids, could not rule out that this was secondary to rectal bleed. I discussed these findings with her who requested consultation by spot sprayer and she underwent colonoscopy on 03/04/20 which showed tiny internal hemorrhoid. Her apixaban was held following episode of bleeding but was resumed after colonoscopy. (6) Normocytic anemia: Code(s): D64.9 - Anemia, unspecified Status: Chronic Assessment and Plan: Per review of prior visits, this is chronic. Hemoglobin dropped approximately 2 points following episode of rectal bleeding, which may have been dilutional as described above. H&H remained stable. 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 She had no signs or symptoms to suggest active infection. She was seen in consultation by cardiology, who felt this was secondary to a past subclinical infection from a previous hospitalization in which she had a venous central line. This resulted in a mild to moderate mitral valve regurgitation. Blood cultures were negative and no further cardiac workup was determined to be needed. (8) Dietary counseling: Code(s): Z71.3 - Dietary counseling and surveillance Status: Acute Assessment and Plan: Patient noted to recently have poor oral intake on her mechanical soft diet and was recently re-started on supplemental tube feedings over the past 2 weeks due to inability to achieve adequate oral intake. She was evaluated by
[2020-03-04] MEDS: ACETAMINOPHEN ELIXIR 325 MG/10.15 ML UDC 975 MG FEED TUBE (13:59)
--- NOTE | 2020-03-04 15:22 | PC.NURSE ---
Called report to Sola STOUT at [facility]. ARGELIA was very familiar with the patient. Informed Sola of the patients edema in the arms bilaterally. Adjustments to medications the physician added Metoprolol 12.5mg BID and closely monitor the BP, and the physician requested to hold Synthroid for 1 week then restart on the along with follow up bloodwork.
[2020-03-08 05:04] LABS: Osmolality, Urine 388 mOsm/kg (50-1200)
== END 2020-03-04 18:15 ==
LOC: ANHED 16:52 → ANH3MED 17:25
PROVIDERS: Family Medicine; Internal Medicine Gastroenterology; Admitting Provider Internal Medicine; Emergency Provider Family Medicine; PCP Family Medicine; Visit Provider Physician Assistant
PROC: 0DJD8ZZ Inspection of Lower Intestinal Tract, Via Natural or Artificial Opening Endoscopic (ICD-10-PCS; CPT 45378; principal; 2020-03-04 07:30)
DX: E87.1 Hypo-osmolality and hyponatremia (principal); K62.5 Hemorrhage of anus and rectum; I33.0 Acute and subacute infective endocarditis; R00.0 Tachycardia, unspecified; G82.50 Quadriplegia, unspecified; Z11.59 Encounter for screening for other viral diseases; D69.6 Thrombocytopenia, unspecified; D64.9 Anemia, unspecified; E03.9 Hypothyroidism, unspecified; I69.320 Aphasia following cerebral infarction; I69.398 Other sequelae of cerebral infarction; I69.369 Other paralytic syndrome following cerebral infarction affecting unspecified side; H54.7 Unspecified visual loss; K64.8 Other hemorrhoids; Z66 Do not resuscitate; Z93.1 Gastrostomy status; Z79.01 Long term (current) use of anticoagulants; Z79.899 Other long term (current) drug therapy
CPT/HCPCS: 45378; 36415; 80048; 80053; 82728; 83540; 83550; 83880; 83935; 84295; 84300; 84439; 84443; 84484; 85014; 85018; 85025; 85027; 87040; 87635; 93005; 93306; 96360; 96361; 96374; 99285; A9270; C8929; C9803; G0378; J2704; J7030; J7040; J7120; Q9957; U0003

== ENCOUNTER 2020-05-11 02:08 | Day surgery (SDC) | payer OTHER, MEDICARE, MEDICAID, SELFPAY ==
[2020-05-03 15:34] VITALS: BMI 24.5
--- NOTE | 2020-05-04 10:02 | P.PNAN_ITS ---
Anes - Initial Pre Proc Eval Procedure: Operation Date: 05/04/20 10:00 Proposed Procedures p PEG Tube Replacement - Chris Santos DO Date/Time: 05/04/20 10:02 Surgeon: Chris Santos DO Pre Op Diagnosis: Malfunction of Peg tube Patient Data Age: 64 Gender: F Height: 1.73 m Weight: 73 kg Allergies Allergy/AdvReac Type Severity Reaction Status Date / Time oxycodone Allergy Unknown Unknown Verified 03/01/20 15:34 Home Medications Medication Instructions Recorded Confirmed Type Calmoseptine 1 applic TOPICAL DAILY PRN 03/01/20 05/03/20 History Icy Hot (menthol) See Rx Instructions .ROUTE 03/01/20 05/03/20 History .COMPLEX PRN acetaminophen 640 mg FEEDING TUBE Q4-6H PRN 03/01/20 05/03/20 History nystatin 1 applic TOPICAL BID 03/01/20 05/03/20 History escitalopram oxalate 2.5 mg FEEDING TUBE DAILY 05/03/20 05/03/20 History lorazepam 0.5 mg SUBLINGUAL Q2H PRN 05/03/20 05/03/20 History lorazepam 0.5 mg SUBLINGUAL Q6H 05/03/20 05/03/20 History metoprolol tartrate 12.5 mg FEEDING TUBE BID 05/03/20 05/03/20 History morphine concentrate 5 mg SUBLINGUAL Q2H PRN 05/03/20 05/03/20 History nystatin 1 applic TOPICAL TID 05/03/20 05/03/20 History PMFSH Social History Social History Smoking status: Never smoker Alcohol intake: never Substance use: never Living arrangements: shelter Additional living arrangements comments: PT IS ON HOSPICE AND DNR Gender identity (if verbalized by the patient): Female Spiritual care concerns: No Anes - Eval Final PreProcedure Day of Procedure 05/04/20 10:02 Patient weight: normal Heart: regular rate and rhythm Lungs: clear to auscultation and normal air movement Airway: Mallampati scale class II Neurological: alert and oriented Last oral intake: >/= 8 hours ASA classification: IV Emergent: no Anesthetic plan: proceed Anesthesia type and monitoring: general GIVS Informed Consent: The patient's anesthetic plan and its attendant risks and benefits were discussed with the patient/family/POA. Questions were solicited and answers provided to the satisfaction of the patient/family/POA.
--- NOTE | 2020-05-04 10:24 | SUR.PREOP ---
05/04/2020 [facility] is unable to transfer the patient in an appropriate time. Time requested was 9:30 am when [facility] was called around 10:am to check to see when they would be arriving. They said they would not have staff available until after 11:30 am and that was not a for sure time could be later. Transfer was cancelled due to assurance of transfer time and Dr. Santos's schedule. Procedure re-scheduled to 05/11/20 at 1000 am. Transfer arrangements made with [facility] for May 11. I also called [facility] and spoke with Chi and discussed upcoming arrangements.
[2020-05-11 10:18] VITALS: BP 100/61; PULSE 76; RESP 18; TEMP 36.7; O2SAT 95
--- NOTE | 2020-05-11 10:23 | SUR.PREOP ---
Patient arrived to GI lab and remained on EMS stretcher. Vital signs obtained. Consent verified. MD at bedside. PEG tube 18 [place] replaced by MD. Patient FLACC 0. Discharge instructions written. Report given to title lawyer. Report called to Luzma ohara regarding the need for xray to check for tube placement- order clarification from Dr Santos. No acute distress noted. Patient discharged.
--- NOTE | 2020-05-11 17:37 | HP_ITS ---
DATE OF SERVICE: 05/11/2020 This 64-year-old white female seen in consultation regarding a change in her PEG tube. IMPRESSION: 1. The patient is here for changing of PEG tube. 2. History of thyroid cancer. 3. Seizures. 4. Transient ischemic attack. 5. Urinary tract infection. 6. Cerebrovascular accident with quadriplegia and aphasia. 7. Deep venous thrombosis. 8. Oropharyngeal dysphagia. RECOMMENDATIONS: Changing over percutaneous gastrostomy tube. HISTORY: This very pleasant lady has a malfunctioning percutaneous gastrostomy tube. She is here for changing her gastrostomy tube. PHYSICAL EXAMINATION: GENERAL: Revealed a lady who opens her eyes. She did not respond to questioning. She is aphasia and quadriplegia. HEENT: Head was normocephalic. Sclerae clear. Mouth without masses. NECK: Supple. HEART: Rate and rhythm regular. LUNGS: Clear. ABDOMEN: Soft. The previously placed percutaneous gastrostomy tube. NEUROLOGIC: The patient is quadriplegia. Does open her eyes, but does not respond. I want to thank you for allowing me to participate in the care of this patient. If I can be further service to you, please do not hesitate to contact me anytime. D I MT: [place]
--- NOTE | 2020-05-11 17:37 | OP_ITS ---
DATE OF PROCEDURE: 05/11/2020 HISTORY AND PREOPERATIVE DIAGNOSIS: A very pleasant lady, who is here for percutaneous gastrostomy tube change. POSTOPERATIVE DIAGNOSIS: Status post changing of percutaneous gastrostomy tube. PROCEDURE: The patient was brought to the GI endoscopy suite and kept in the supine position. The old tube was removed after deflation of the balloon. An 18-Bulgarian percutaneous gastrostomy tube was inserted without difficulty. The tube was irrigated and gastric contents were returned. A followup x-ray will be performed at the retirement. D I MT: [place]
== END 2020-05-11 10:22 | disposition home or self-care (01) ==
PROVIDERS: PCP Family Medicine; Visit Provider Internal Medicine Gastroenterology
PROC: 0DH63UZ Insertion of Feeding Device into Stomach, Percutaneous Approach (ICD-10-PCS; CPT 43246; principal; 2020-05-11 10:00)
DX: K94.23 Gastrostomy malfunction (principal); R13.12 Dysphagia, oropharyngeal phase; G82.50 Quadriplegia, unspecified; G40.909 Epilepsy, unspecified, not intractable, without status epilepticus; Z86.73 Personal history of transient ischemic attack (TIA), and cerebral infarction without residual deficits
CPT/HCPCS: 99211; G0463

== ENCOUNTER 2020-11-15 01:11 | Emergency (ER) | payer OTHER, MEDICARE, MEDICAID, SELFPAY ==
--- NOTE | ~2020-11-15 | XR_ITS ---
XR G tube evaluation w imaging 11/15/2020 01:58 Indication: G-tube evaluation Procedure: AP portable view of the abdomen Comparison: 02/13/2018 Findings: Contrast present in the gastric lumen without evidence for extravasation. Gastric tube in t he expected position. There is moderate colonic fecal loading of the distal colon and rectum. No lydia l obstruction. Impression: 1: Gastric tube in expected position. Reviewed, dictated and finalized at location A. Impression: 1: Gastric tube in expected position.
[2020-11-15 01:20] VITALS: BP 114/83; PULSE 99; RESP 20; TEMP 36.6; O2SAT 96
--- NOTE | 2020-11-15 01:37 | ED.GENADULT ---
HPI - General Adult General Chief complaint: Unspecified Stated complaint: peg tube fell out Time Seen by Provider: 11/15/20 01:17 History of Present Illness HPI narrative: Patient is a 65-year-old female who presents to emergency department with chief complaint of pulled out G-tube. Patient was sent from a local longterm after her G-tube was pulled out. Patient currently has no complaints at this time. The patient is unable to provide history due to her chronic conditions. Related Data Home Medications Medication Instructions Recorded Confirmed Calmoseptine 1 applic TOPICAL DAILY PRN 03/01/20 05/03/20 Icy Hot (menthol) See Rx Instructions .ROUTE 03/01/20 05/03/20 .COMPLEX PRN acetaminophen 640 mg FEEDING TUBE Q4-6H PRN 03/01/20 05/03/20 nystatin 1 applic TOPICAL BID 03/01/20 05/03/20 escitalopram oxalate 2.5 mg FEEDING TUBE DAILY 05/03/20 05/03/20 lorazepam 0.5 mg SUBLINGUAL Q2H PRN 05/03/20 05/03/20 lorazepam 0.5 mg SUBLINGUAL Q6H 05/03/20 05/03/20 metoprolol tartrate 12.5 mg FEEDING TUBE BID 05/03/20 05/03/20 nystatin 1 applic TOPICAL TID 05/03/20 05/03/20 Allergies Allergy/AdvReac Type Severity Reaction Status Date / Time oxycodone Allergy Unknown Unknown Verified 05/11/20 10:16 Review of Systems Review of Systems: Narrative: A 10 system review of systems was completed on the patient and is negative except for what is stated in the HPI. Nursing and ancillary documentation was reviewed. [facility] Past Medical History Medical History (Updated 11/15/20 @ 01:41 by Reynaldo Durant MD) Acute on chronic blood loss anemia G tube feedings Quadriplegia Rectal bleeding Family History Family History Mother Diabetes mellitus Hypertension Social History Social History Smoking status: Never smoker Alcohol intake: never Substance use: never Additional living arrangements comments: PT IS ON HOSPICE AND DNR Gender identity (if verbalized by the patient): Female Spiritual care concerns: No Exam Narrative: Exam Narrative: GENERAL: Well-appearing, well-nourished, and in no acute distress. HEAD: Normocephalic, atraumatic. EYES: PERRLA and EOMI. ENT: Nares clear, no rhinorrhea or epistaxis. Mucous membranes moist. NECK: Supple. CHEST: Clear to auscultation. No respiratory distress. HEART: Regular rate and rhythm. No murmur heard. Normal peripheral pulses. ABDOMEN: Soft, nontender, nondistended, normal active bowel sounds. EXTREMITIES: Normal range of motion. No edema. SKIN: Warm, dry, no rash. NEURO: At baseline neurological status. PSYCH: Normal mood and affect. Course Vital Signs Vital signs: Vital Signs Temperature 36.6 C 11/15/20 01:20 Pulse Rate 99 11/15/20 01:20 Respiratory Rate 11/15/20 01:20 Blood Pressure 114/83 11/15/20 01:20 Pulse Oximetry 96 11/15/20 01:20 Temperature 36.6 C 11/15/20 01:20 Pulse Rate 99 11/15/20 01:20 Respiratory Rate 11/15/20 01:20 Blood Pressure 114/83 11/15/20 01:20 Pulse Oximetry 96 11/15/20 01:20 Procedures Feeding Tube Replacement Feeding Tube #1: Feeding Tube Placement Date: 11/15/20 Feeding Tube Placement Time: 01:42 Type of Tube: gastrostomy Insertion Site Prior to Procedure: clean Tube Used for Reinsertion: other (PEG tube) [place]ian Tube Size (F): 16 Balloon size (mL): 20 Verification of Placement: gastrografin injection Tube Secured by: attachment device Patient Tolerated Procedure: well Medical Decision Making Vital Signs Vital Signs: Vital Signs Temperature 36.6 C 11/15/20 01:20 Pulse Rate 99 11/15/20 01:20 Respiratory Rate 11/15/20 01:20 Blood Pressure 114/83 11/15/20 01:20 Pulse Oximetry 96 11/15/20 01:20 Temperature 36.6 C 11/15/20 01:20 Pulse Rate 99 11/15/20 01:2
--- NOTE | 2020-11-15 01:40 | PC.NURSE ---
made contact with [facility] to take patient back to [facility] [place] [facility]. eta [phone]
[2020-11-15 02:42] VITALS: BP 113/69; PULSE 91; RESP 18; O2SAT 98
[2020-11-15 03:52] VITALS: BP 95/70; PULSE 94; RESP 18; O2SAT 97
--- NOTE | 2020-11-15 03:53 | PC.NURSE ---
aiden called to inform me of a new eta of [id number]
[2020-11-15 04:49] VITALS: BP 95/61; PULSE 96; RESP 18; O2SAT 95
--- NOTE | 2020-11-15 05:53 | PC.NURSE ---
wolfe called with a new eta [id number]
[2020-11-15 07:25] VITALS: BP 91/67; PULSE 88; RESP 18; O2SAT 97
== END 2020-11-15 07:47 ==
PROVIDERS: Emergency Provider Emergency Medicine; PCP Family Medicine
DX: K94.23 Gastrostomy malfunction (principal); G82.50 Quadriplegia, unspecified
CPT/HCPCS: 49465; 99284